=== PATIENT | male | born 1995 | race Two or more races ===

== ENCOUNTER 2025-04-22 13:19 | Emergency (ER) | payer MEDICAID, SELFPAY ==
[2025-04-22 13:49] VITALS: BP 122/78; PULSE 122; RESP 20; TEMP 39.4; O2SAT 96
[2025-04-22] MEDS: IBUPROFEN TAB 400 MG TABLET 800 MG PO (14:06)
[2025-04-22] MEDS: dexAMETHasone 4 MG TABLET 10 MG PO (14:06)
[2025-04-22] MEDS: LIDOCAINE HCL 1% 20 ML VIAL 2.1 ML INFL (14:07)
[2025-04-22] MEDS: cefTRIAXone SOD INJ 1,000 MG VIAL 1000 MG IM (14:07)
--- NOTE | 2025-04-22 17:18 | EDNOTE_ITS ---
Upper Respiratory Inf. RME/HPI General Chief Complaint: Headache Stated Complaint: MIGRAINE X FRI, FEVER, SORE THROAT, BONE ACHES Time Seen by Provider: 04/22/25 13:45 Arrival date/time: 04/22/25 13:19 29-year-old male with no significant medical problems presents to the Emergency Department today for complaints of sore throat and fever as well as headache and generalized bodyaches. Limitations: no limitations Related Data Previous Rx's ?Medication ?Instructions ?Recorded amoxicillin 875 mg-potassium 1 tab PO BID 7 days #14 t abs 04/22/25 clavulanate 125 mg tablet ibuprofen 800 mg tablet 800 mg PO TID PRN pain #30 t abs 04/22/25 Allergies Allergy/AdvReac Type Severity Reaction Status Date / Time NKA* Allergy Uncoded 04/22/25 13:22 Review of Systems Review of Systems Systems Reviewed: All systems reviewed, normal except as documented Constitutional Constitutional: Reports system reviewed and no additional complaints, except as documented, Denies fever(s) and Denies headache(s) Eyes Eyes: Reports system reviewed and no additional complaints, except as documented and Denies blurry vision ENT Ears, Nose, Mouth, and Throat: Reports system reviewed and no additional complaints, except as documented, Denies headache(s), Reports mouth pain, Reports nasal congestion, Reports nasal discharge, Reports sore throat and Reports throat swelling Cardiovascular Cardiovascular: Reports system reviewed and no additional complaints, except as documented, Denies chest pain and Denies dyspnea Respiratory Respiratory: Reports system reviewed and no additional complaints, except as documented, Denies chest congestion, Denies cough and Denies dyspnea Gastrointestinal Gastrointestinal: Reports system reviewed and no additional complaints, except as documented and Denies abdominal pain Integumentary/Breasts Skin/Breast: Reports system reviewed and no additional complaints, except as documented and Denies rash Neurologic Neurologic: Reports system reviewed and no additional complaints, except as documented, Reports as per HPI and Denies headache(s) Allergic/Immunologic Allergic/Immunologic: Reports throat swelling Past Medical History Past Medical History CARDIAC: Negative Congestive Heart Failure RESPIRATORY: Negative Chronic Obstructive Pulmonary Disease (COPD) GENITOURINARY: Negative Renal Disease ENDOCRINE: Negative Diabetes Mellitus Type 1 or Diabetes Mellitus Type 2 Social History SMOKING STATUS: Never smoker ED Exam General Limitations: Present no limitations General appearance: Present alert and in no apparent distress Head Head exam: Present atraumatic, normocephalic and normal inspection Eye Eye exam: Present normal appearance, PERRL and EOMI; Absent conjunctival injection ENT ENT exam: Present normal exam, normal oropharynx and mucous membranes moist Neck Neck exam: Present normal inspection, full ROM and trachea midline Chest Chest inspection: Present normal inspection and symmetric chest wall rise Respiratory Respiratory exam: Present normal lung sounds bilaterally; Absent respiratory distress, wheezes, stridor, accessory muscle use or prolonged expiratory phase Cardiovascular Cardiovascular exam: Present regular rate, normal rhythm and normal heart sounds Abdominal Exam Abdominal exam: Present soft and normal bowel sounds Extremities Exam Extremities exam: Present normal inspection and full ROM Back Exam Back exam: Present normal inspection and full ROM Neurological Exam Neurological exam: Present alert, oriented X3 and CN II-XII intact Psychiatric Psychiatric exam: Present normal affect and normal mood Skin Skin exam: Present warm, dry, intact and normal color Course Quality Measures none Orders Category Date Time Status Ibuprofen Tab [Motrin Tab] Med 04/22/25 13:52 Discontinued 800 mg PO X1 ONE Lidocaine 1% 20 ml [Xylocaine 1% 20 ML] Med 04/22/25 13:52 Discontinued 2.1 ml INFL X1 ONE cefTRIAXone [Rocephin] Med 04/22/25 13:52 Discontinued 1,000 mg IM X1 ONE dexAMETHasone TAB [Decadron Tab] Med 04/22/25 13:52 Discontinued 10 mg PO X1 ONE Vital Signs Vital signs: Vital Signs Temperature 103.0 F H 04/22/25 13:49 Pulse Rate 122 H 04/22/25 13:49 Respiratory Rate 20 04/22/25 13:49 Blood Pressure 122/78 04/22/25 13:49 Pulse Oximetry (%) 96 04/22/25 13:49 Oxygen Delivery Method Room Air 04/22/25 13:49 O2 saturation 96% r,a wnl Upper Respiratory Infection MDM Narrative MDM Narrative:: 29-year-old male with no significant medical problems presents to the Emergency Department today for complaints of sore throat and fever as well as headache and generalized bodyaches. On exam patient well-appearing patient does not appear ill or toxic in no acute distress despite having fever On exam patient appears to streptococcal pharyngitis patient given Rocephin, ibuprofen, dexamethasone Symptoms are highly consistent with streptococcal pharyngitis Patient discharged home in no distress to follow-up with primary care doctor in the next 24 to 48 hours and for any worsening symptoms to return to the ER immediately Patient data External records reviewed:: [facility] previous records Clinical information provided by:: patient Social determinants that could affect healthcare access:: none Patient has the following chronic illnesses:: Given How is presenting disease/condition affected by chronic disease/condition?: no chronic disease Evaluation data The following diagnostics were reviewed and interpreted by me:: other (specify) (N/A) Lab and/or radiology exams considered but not ordered:: Considered not ordered Interpretation Summary: N/A Medications / Prescriptions Medications or Prescriptions considered but not ordered:: Given Medication administrations:: Medication Administration History Discontinued Medications Ceftriaxone Sodium (Ceftriaxone Sod Inj 1,000 Mg Vial) 1,000 mg IM X1 ONE Stop: 04/22/25 13:53 Last Admin: 04/22/25 14:07 Dose: 1,000 mg Documented By: MAGGY Dexamethasone (Dexamethasone 4 Mg Tablet) 10 mg PO X1 ONE Stop: 04/22/25 13:53 Last Admin: 04/22/25 14:06 Dose: 10 mg Documented By: MAGGY Ibuprofen (Ibuprofen Tab 400 Mg Tablet) 800 mg PO X1 ONE Stop: 04/22/25 13:53 Last Admin: 04/22/25 14:06 Dose: 800 mg Documented By: MAGGY Lidocaine HCl (Lidocaine Hcl 1% 20 Ml Vial) 2.1 ml INFL X1 ONE Stop: 04/22/25 13:53 Last Admin: 04/22/25 14:07 Dose: 2.1 ml Documented By: MAGGY Given Consultations Consultation(s) initiated? (list below): No Diagnosis Upper Respiratory Differential Diagnosis: upper respiratory infection, otitis media, sinusitis, bronchitis and pharyngitis Most likely diagnosis given after review of the tests above:: Pharyngitis Admission Indicated Admission indicated?: not indicated Admission Request Was there a request for admission?: No Disposition Plan Disposition Plan: Discharge Discharge Attestation Discharge Attestation: The patient and all family members were given an opportunity to ask questions and understood the discharge instructions. Discharge instructions specifically effects, indications for sooner follow up or return to the emergency department, and the expected course of current diagnosis. Patient condition: Stable Discharge Plan Plan Patient Disposition: HOME (Self Care) Discharge Disposition comment: Stable Prescriptions/Referrals Prescriptions/Med Rec: New amoxicillin-pot clavulanate 875-125 mg tablet 1 tab PO BID 7 Days Qty: 14 0RF ibuprofen 800 mg tablet 800 mg PO TID PRN (Reason: pain) Qty: 30 0RF Problem List Clinical Impression: Pharyngitis Patient/Caregiver Discharge Instructions Education Materials: Self-Care for Sore Throats Additional Instructions: Please follow up with your primary care doctor in the next 24-48hrs for any worsening symptoms return here immediately Print Language: Japanese Stand Alone Forms: Kathi Award Info., Work/School Release, Patient Portal Info Letter PA/SAP BASIS ARCHITECT Supervising Physician PA/SAP BASIS ARCHITECT Supervising Physician: Dr cruz
== END 2025-04-22 15:00 | disposition home or self-care (01) ==
LOC: SERX 14:46
PROVIDERS: Emergency Provider Family Medicine; PCP Family Medicine
DX: J02.9 Acute pharyngitis, unspecified (principal)
CPT/HCPCS: 96372; 99283; J0696; J3490; J8540; A9270

== ENCOUNTER 2025-07-31 05:40 | Day surgery (SDC) | payer MEDICAID, SELFPAY ==
[2025-07-30 07:30] VITALS: BMI 40.6
[2025-07-30 08:36] LABS: Basophils # (Auto) 0.0 Thou/mm3 (0.0-0.2); Basophils % (Auto) 1 % (0-2.5); Eosinophils # (Auto) 0.2 Thou/mm3 (0.0-0.5); Eosinophils % (Auto) 4 % (0-10); Hematocrit 48.9 % (41.0-53.0); Hemoglobin 16.3 g/dL (13.5-16.0); Immature Granulocytes Auto 0.03 Thou/mm3 (0.00-0.00); Lymphocytes # (Auto) 2.4 Thou/mm3 (1.0-4.8); Lymphocytes % (Auto) 41 % (10-50); Mean Corpuscular HGB Conc 33.3 g/dl (31.0-37.0); Mean Corpuscular Hemoglobin 31.7 pg (25.0-35.0); Mean Corpuscular Volume 95 fL (80-100); Monocytes # (Auto) 0.6 Thou/mm3 (0.0-0.8); Monocytes % (Auto) 10 % (0-12); Neutrophils # (Auto) 2.7 Thou/mm3 (1.8-7.7); Neutrophils % (Auto) 45 % (37-80); Nucleated Red Blood Cell # 0.00 Thou/mm3 (0.00-0.00); Nucleated Red Blood Cell % 0 /100 WBC (0); Platelet Count 249 Thou/mm3 (140-440); RDW Standard Deviation 47.7 fL (35.1-43.9); Red Blood Count 5.15 Miln/mm3 (4.50-5.90); White Blood Count 6.0 Thou/mm3 (3.8-10.6)
[2025-07-30 08:47] LABS: Alanine Aminotransferase 29 U/L (10-49); Albumin, Serum 4.3 gm/dL (3.5-5.0); Albumin/Globulin Ratio 1.5 (1.2-2.2); Alkaline Phosphatase 57 U/L (46-116); Anion Gap 9 (7-16); Aspartate Amino Transferase 26 U/L (0-34); BUN/Creatinine Ratio 18 Ratio (12-20); Bilirubin,Total 0.5 mg/dL (0.3-1.2); Blood Urea Nitrogen 14 mg/dL (9-23); Calcium 9.7 mg/dL (8.3-10.6); Calcium (Corrected) 9.7 mg/dL (8.5-10.1); Carbon Dioxide 28.9 mMol/L (20.0-31.0); Chloride 102 mMol/L (98-107); Creatinine (Component) 0.8 mg/dL (0.6-1.3); Estimated Creatinine Clearance 173.9 mL/min (>60); Globulin 2.8 gm/dL (2.3-3.5); Glucose 95 mg/dL (74-106); Osmolality,Calculated 279 (275-295); Potassium 4.0 mMol/L (3.4-5.1); Sodium 140 mMol/L (136-145); Total Protein 7.1 gm/dL (5.7-8.2); eGFR > 60 See Note
[2025-07-31 06:30] VITALS: BP 162/88; PULSE 97; RESP 20; TEMP 36.9; O2SAT 96; BMI 40.0
[2025-07-31] MEDS: RINGERS LACTATED 1000 ML 1,000 ML 20 ML IV (06:40)
--- NOTE | 2025-07-31 07:15 | CHAP ---
Visited briefly with patient giving comfort and prayer.
[2025-07-31 08:46] VITALS: BP 135/95; PULSE 96; RESP 19; TEMP 36.6; O2SAT 97
--- NOTE | 2025-07-31 08:46 | SUR.PHASEII ---
0825 patient arrived to recovery resting comfortably in [facility], awake and talking with staff, breathing unlabored, vital signs stable, denies pain, dressing intact to left foot; sutures, adaptic, fluffs, evelyn wraps, no bleeding noted, report received from Nolan L[facility] and Dr. Cooper/Gilles SRNA
[2025-07-31 08:51] VITALS: BP 134/91; PULSE 97; RESP 20; O2SAT 96
--- NOTE | 2025-07-31 08:52 | ESOP_ITS ---
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 IV sedation was obtained, and a local block was given of 30 cc 0.5% Marcaine following skin prep. A tourniquet was applied to the ankle and left lower leg was scrubbed prepped and draped in the normal aseptic fashion. Attention was then directed to the left foot which was exsanguinated of obligation Esmarch bandage. A curvilinear incision was made overlying the mass, and skin and subcu were incised exposing the mass. The mass was immediately noted, fibrous scar tissue largely avascular, with some adipose tissue clean to it. Otherwise the mass is well-defined margins was teased away from the surrounding soft tissues without damage to structures, and was resected from the fascia with a margin of more than 0.5 cm. Mass was sent to pathology, areas copiously flushed and rongeured ensuring that no more residual fascia was noted anywhere near margins, area was flushed again, and closed with 3-0 Vicryl and 3- 0 nylon. It was dressed with Adaptic fluffs Kerlix and Clyde. Tourniquet was dropped and patient sent to recovery with vital signs stable and vascular status intact to left foot. Anesthesia MAC and local Drains None Implants None Pathology / specimen Other Pathology comment: Left plantar fibroma mass sent Estimated Blood Loss 5 Condition Stable Disposition same day Surgeon Junior Mcadams DPM Surgical Staff Operation Date: 07/31/25 07:30 Case Staff Anesthesiologist: Vladimir Cooper
[2025-07-31 08:56] VITALS: BP 139/94; PULSE 89; RESP 17; O2SAT 97
[2025-07-31 09:01] VITALS: BP 133/83; PULSE 92; RESP 13; O2SAT 95
[2025-07-31 09:16] VITALS: BP 145/91; PULSE 87; RESP 19; TEMP 36.7; O2SAT 97
--- NOTE | 2025-07-31 09:34 | SUR.PHASEII ---
0934 Patient meets discharge criteria from recovery, awake and alert, breathing unlabored, vital signs stable, denies pain, dressing intact; no bleeding noted, patient ate two jello's and drinking apple juice; tolerating well, denies nausea, able to dress himself into his clothing, discharge instructions given to patient and patients brother, brother signed discharge instructions. Patient given all his belongings prior to discharge, transported via wheelchair and left in a private vehicle.
== END 2025-07-31 09:34 | disposition home or self-care (01) ==
PROVIDERS: PCP Family Medicine; Referring Provider Podiatrist; Visit Provider Podiatrist
PROC: (CPT 28039; principal; 2025-07-31 07:30)
DX: M72.2 Plantar fascial fibromatosis (principal)
CPT/HCPCS: 28039; 36415; 80053; 85025; A4217; A4649; J2250; J2704; J3010; J3490; J7120

== ENCOUNTER 2025-10-28 05:03 | Emergency (ER) | payer MEDICAID, SELFPAY ==
[2025-10-28 05:03] VITALS: BMI 41.0
[2025-10-28 05:11] VITALS: BP 141/92; PULSE 88; RESP 18; TEMP 36.6; O2SAT 95
--- NOTE | 2025-10-28 05:21 | XR_ITS ---
Examination: Abdomen sonogram, Limited Date and time of exam: October 28, 2025, 0530 hours INDICATIONS: Onset abdominal pain today Technique: Real-time garcia scale transabdominal sonographic images of the upper abdomen obtained. Findings: Negative for gallstones Gallbladder wall 0.36 cm no edema Common bile duct 0.3 cm Pancreas obscured by bowel gas Liver 15.0 cm fatty infiltration Normal hepatopetal portal venous flow Patent IVC IMPRESSION: Borderline thickened gallbladder wall 0.36 cm, clinical correlation advised, consider HIDA scan or MRCP follow-up as clinically warranted
--- NOTE | 2025-10-28 05:21 | PD.EDRME ---
Rapid Medical Screening Exam RME Arrival date/time: 10/28/25 05:03 This is a case of 30-year-old male with no medical history came in in the emergency room due to both upper abdominal and epigastric pain for 1 day associated with nausea vomitINGH Chief Complaint: Abdominal Pain Time Seen by Provider: 10/28/25 05:20 Vital signs: Vital Signs Temperature 97.9 F 10/28/25 05:11 Pulse Rate 88 10/28/25 05:11 Respiratory Rate 18 10/28/25 05:11 Blood Pressure 141/92 H 10/28/25 05:11 Pulse Oximetry (%) 95 10/28/25 05:11 Oxygen Delivery Method Room Air 10/28/25 05:11 Exam: Tenderness on both upper abdomen no guarding no rebound no rigidity negative psoas negative straight or negative Rovsing's negative McBurney's negative Miller sign negative CVA tenderness Clinical Impression: Abdominal pain
[2025-10-28 05:43] LABS: Collection Type, Urine Clean Catch; Squamous Epithelial Cell,Urine 0 /hpf (0-5)
[2025-10-28 06:03] LABS: Basophils # (Auto) 0.0 Thou/mm3 (0.0-0.2); Basophils % (Auto) 0 % (0-2.5); Eosinophils # (Auto) 0.2 Thou/mm3 (0.0-0.5); Eosinophils % (Auto) 3 % (0-10); Hematocrit 47.9 % (41.0-53.0); Hemoglobin 16.0 g/dL (13.5-16.0); Immature Granulocytes Auto 0.01 Thou/mm3 (0.00-0.00); Lymphocytes # (Auto) 2.1 Thou/mm3 (1.0-4.8); Lymphocytes % (Auto) 32 % (10-50); Mean Corpuscular HGB Conc 33.4 g/dl (31.0-37.0); Mean Corpuscular Hemoglobin 30.5 pg (25.0-35.0); Mean Corpuscular Volume 91 fL (80-100); Monocytes # (Auto) 0.7 Thou/mm3 (0.0-0.8); Monocytes % (Auto) 10 % (0-12); Neutrophils # (Auto) 3.6 Thou/mm3 (1.8-7.7); Neutrophils % (Auto) 55 % (37-80); Nucleated Red Blood Cell # 0.00 Thou/mm3 (0.00-0.00); Nucleated Red Blood Cell % 0 /100 WBC (0); Platelet Count 248 Thou/mm3 (140-440); RDW Standard Deviation 46.2 fL (35.1-43.9); Red Blood Count 5.25 Miln/mm3 (4.50-5.90); White Blood Count 6.6 Thou/mm3 (3.8-10.6)
[2025-10-28 06:07] LABS: Bilirubin,Urine Negative (Negative); Blood,Urine Trace (Negative); Clarity,Urine Clear (Clear/Hazy); Color,Urine Yellow (Lt Yel-Yel); Glucose, Urine Negative (Negative); Ketones,Urine Negative (Negative); Leukocyte Esterase,Urine Negative (Negative); Nitrite,Urine Negative (Negative); PH,Urine 6.0 (5.0-7.0); Protein,Urine Negative (Neg - Trace); RBC,Urine 4 /hpf (0-3); Specific Gravity,Urine 1.022 (1.001-1.035); Urobilinogen,Urine Negative mg/dL (0.0-1.0); WBC,Urine 1 /hpf (0-5)
[2025-10-28 06:21] LABS: Alanine Aminotransferase 22 U/L (10-49); Albumin, Serum 5.0 gm/dL (3.5-5.0); Albumin/Globulin Ratio 1.6 (1.2-2.2); Alkaline Phosphatase 64 U/L (46-116); Anion Gap 9 (7-16); Aspartate Amino Transferase 26 U/L (0-34); BUN/Creatinine Ratio 12 Ratio (12-20); Bilirubin,Total 0.7 mg/dL (0.3-1.2); Blood Urea Nitrogen 11 mg/dL (9-23); Calcium 9.7 mg/dL (8.3-10.6); Calcium (Corrected) 9.7 mg/dL (8.5-10.1); Carbon Dioxide 30.9 mMol/L (20.0-31.0); Chloride 100 mMol/L (98-107); Creatinine (Component) 0.9 mg/dL (0.6-1.3); Estimated Creatinine Clearance 152.8 mL/min (>60); Globulin 3.2 gm/dL (2.3-3.5); Glucose 121 mg/dL (74-106); Lipase 31 U/L (12-53); Osmolality,Calculated 279 (275-295); Potassium 4.1 mMol/L (3.4-5.1); Sodium 140 mMol/L (136-145); Total Protein 8.2 gm/dL (5.7-8.2); eGFR > 60 See Note
--- NOTE | 2025-10-28 07:14 | EDNOTE_ITS ---
<Statement entered by Hiwot Dodd MD - 10/28/25 17:17> As co-signing physician, I was present and available for consult prn. I concur with the plan and care as documented by the midlevel provider. ED Abdominal Pain RME/HPI General Chief Complaint: Abdominal Pain Stated complaint: R SIDED ABD PAIN Time seen by provider: 10/28/25 05:20 Arrival date/time: 10/28/25 05:03 30-year-old male with no known medical history presents to the emergency room with a chief complaint of epigastric abdominal pain that radiates to the right upper quadrant x 2 days Source: patient Mode of arrival: ambulatory Limitations: no limitations RME / HPI RME / HPI narrative: 10/28/25 05:03 This is a case of 30-year-old male with no medical history came in in the emergency room due to both upper abdominal and epigastric pain for 1 day associated with nausea vomitINGH Exam: Tenderness on both upper abdomen no guarding no rebound no rigidity negative psoas negative straight or negative Rovsing's negative McBurney's negative Miller sign negative CVA tenderness Impression: Abdominal pain Related Data Previous Rx's ?Medication ?Instructions ?Recorded omeprazole 40 mg capsule,delayed 40 mg PO QDAY #30 cap s 10/28/25 release Allergies Allergy/AdvReac Type Severity Reaction Status Date / Time No Known Allergies Allergy Verified 10/28/25 05:07 Review of Systems Review of Systems Systems Reviewed: All systems reviewed, normal except as documented Constitutional Constitutional: Reports system reviewed and no additional complaints, except as documented, Denies fatigue, Denies fever(s), Denies headache(s) and Denies w eakness Eyes Eyes: Reports system reviewed and no additional complaints, except as documented, Denies blurry vision and Denies change in vision ENT Ears, Nose, Mouth, and Throat: Reports system reviewed and no additional complaints, except as documented, Denies otalgia, Denies headache(s), Denies nasal congestion, Denies throat swelling and Denies vertigo Cardiovascular Cardiovascular: Reports system reviewed and no additional complaints, except as documented, Denies chest pain, Denies dyspnea and Denies dyspnea on exertion Respiratory Respiratory: Reports system reviewed and no additional complaints, except as documented, Denies chest congestion, Denies cough, Denies dyspnea, Denies dyspnea on exertion and Denies wheezing Gastrointestinal Gastrointestinal: Reports system reviewed and no additional complaints, except as documented, Reports abdominal pain, Reports cramping, Reports dyspepsia, Reports nausea and Reports vomiting Genitourinary Genitourinary: Reports system reviewed and no additional complaints, except as documented, Denies dysuria and Denies hematuria Musculoskeletal Musculoskeletal: Reports system reviewed and no additional complaints, except as documented and Denies back pain Integumentary/Breasts Skin/Breast: Reports system reviewed and no additional complaints, except as documented and Denies wounds Neurologic Neurologic: Reports system reviewed and no additional complaints, except as documented, Denies confusion, Denies headache(s), Denies lack of coordination, Denies vertigo and Denies weakness Psychiatric Psychiatric: Reports system reviewed and no additional complaints, except as documented, Denies anxiety, Denies confusion, Denies depression, Denies paranoia, Denies suicidal ideation and Denies tactile hallucinations Endocrine Endocrine: Reports system reviewed and no additional complaints, except as documented and Denies fatigue Hematologic/Lymphatic Hematologic/Lymphatic: Reports system reviewed and no additional complaints, except as documented and Denies lymphadenopathy Allergic/Immunologic Allergic/Immunologic: Reports system reviewed and no additional complaints, except as documented, Denies throat swelling, Denies urticaria and Denies wheezing Past Medical History Past Medical History NEUROLOGIC: Negative Neurological Disorders or Seizures CARDIAC: Negative Cardiac Disorders or Congestive Heart Failure RESPIRATORY: Negative Chronic Obstructive Pulmonary Disease (COPD) GASTROINTESTINAL: Positive Gastrointestinal Disorders and Obesity GENITOURINARY: Negative Genitourinary Disorders or Renal Disease MUSCULOSKELETAL: Negative Musculoskeletal Disorders ENDOCRINE: Negative Endocrine Disorders, Diabetes Mellitus Type 1 or Diabetes Mellitus Type 2 HEMATOLOGIC: Negative Blood Disorders OTHER HISTORY: Negative Autoimmune Disease, Blood Transfusions, Blood Transfusion Reaction, Anesthesia Reactions, MRSA, Clostridium Difficile or Cancer Family History FAMILY HISTORY: Negative Family Psychiatric Problems, Family Respiratory Disorders, Family Cardiac Disorders, Family Gastrointestinal Problems, Family Cancer, Family Surgery or Family Anesthesia Reaction Social History SMOKING STATUS: Never smoker ED Exam General Limitations: Present no limitations General appearance: Present alert and in no apparent distress Head Head exam: Present atraumatic Eye Eye exam: Present normal appearance, PERRL and EOMI ENT ENT exam: Present normal exam, normal oropharynx and mucous membranes moist Neck Neck exam: Present normal inspection, full ROM and trachea midline Chest Chest inspection: Present normal inspection and symmetric chest wall rise Respiratory Respiratory exam: Present normal lung sounds bilaterally Cardiovascular Cardiovascular exam: Present regular rate, normal rhythm and normal heart sounds Abdominal Exam Abdominal exam: Present soft, tenderness and normal bowel sounds; Absent Miller's sign, Rovsing's sign or tenderness at McBurney's Point Abdominal tenderness: Present RUQ, epigastrium and mild Extremities Exam Extremities exam: Present normal inspection and full ROM Back Exam Back exam: Present normal inspection and full ROM Neurological Exam Neurological exam: Present alert, oriented X3 and CN II-XII intact Psychiatric Psychiatric exam: Present normal affect and normal mood Skin Skin exam: Present warm, dry, intact and normal color Course Quality Measures none Orders Category Date Time Status US gall bladder Stat Exams 10/28/25 05:21 Completed CBC Stat Lab 10/28/25 05:48 Completed Comprehensive Metabolic Panel Stat Lab 10/28/25 05:48 Completed Lipase Stat Lab 10/28/25 05:48 Completed Urinalysis Stat Lab 10/28/25 05:30 Completed Vital Signs Vital signs: Vital Signs Temperature 97.9 F 10/28/25 05:11 Pulse Rate 88 10/28/25 05:11 Respiratory Rate 18 10/28/25 05:11 Blood Pressure 141/92 H 10/28/25 05:11 Pulse Oximetry (%) 95 10/28/25 05:11 Oxygen Delivery Method Room Air 10/28/25 05:11 Abdominal Pain MDM MDM Narrative MDM Narrative:: 30-year-old male with no known medical history presents to the emergency room with a chief complaint of epigastric abdominal pain that radiates to the right upper quadrant x 2 days Patient is hemodynamically stable and in no apparent distress. Patient is afebrile not tachycardic not tachypneic Physical examination shows right upper quadrant abdominal tenderness. There is a negative Miller sign Ultrasound of the gallbladder was negative for any cholelithiasis or cholecystitis. The patient does have a fatty liver which to was educated on. There was also a thickened gallbladder wall. Bilirubin and liver enzymes are within normal limits. Patient was discharged and educated to follow-up with primary care provider in the next 24 to 48 hours and return to the emergency room for any evidence of worsening signs or symptoms Patient data External records reviewed:: [facility] previous records Clinical information provided by:: patient Social determinants that could affect healthcare access:: none Patient has the following chronic illnesses:: No chronic How is presenting disease/condition affected by chronic disease/condition?: no chronic disease Evaluation data The following diagnostics were reviewed and interpreted by me:: lab results and radiology exam(s) Lab and/or radiology exams considered but not ordered:: Labs and radiology exams considered and ordered Interpretation Summary: Ultrasound gallbladder-Findings: Negative for gallstones Gallbladder wall 0.36 cm no edema Common bile duct 0.3 cm Pancreas obscured by bowel gas Liver 15.0 cm fatty infiltration Normal hepatopetal portal venous flow Patent IVC IMPRESSION: Borderline thickened gallbladder wall 0.36 cm, clinical correlation advised, consider HIDA scan or MRCP follow-up as clinically warranted Medications / Prescriptions Medications or Prescriptions considered but not ordered:: No medication given Medication administrations:: No medication given Consultations Consultation(s) initiated? (list below): No Diagnosis Differential diagnosis abdominal pain: abdominal pain, gastroenteritis, pancreatitis and other (Gastritis/cholelithiasis/cholecystitis) Most likely diagnosis given after review of the tests above:: Gastritis Admission Indicated Admission indicated?: not indicated Admission Request Was there a request for admission?: No Disposition Plan Disposition Plan: Discharge Discharge Attestation Discharge Attestation: The patient and all family members were given an opportunity to ask questions and understood the discharge instructions. Discharge instructions specifically effects, indications for sooner follow up or return to the emergency department, and the expected course of current diagnosis. Patient condition: Stable Discharge Plan Plan Patient Disposition: HOME (Self Care) Discharge Disposition comment: Stable Prescriptions/Referrals Prescriptions/Med Rec: New omeprazole 40 mg capsule,delayed release(DR/EC) 40 mg PO QDAY Qty: 30 0RF Referrals: No Primary/Family,Physician [Referring Provider] - In 1 week Problem List Clinical Impression: Gastritis, Fatty infiltration of liver Patient/Caregiver Discharge Instructions Education Materials: Nonalcoholic Fatty Liver ..., ED Gastritis (Adult) Additional Instructions: Please follow-up with your primary care provider in the next 24 to 48 hours Your ultrasound of your gallbladder was negative for any stones. Your blood work and urinalysis were within normal limits. Medication was sent to your pharmacy to help you with gastritis For any evidence of worsening signs or symptoms return to the emergency room immediately Print Language: Turkmen Stand Alone Forms: Kathi Award Info., Work/School Release, Patient Portal Info Letter PA/PROBATION WORKER Supervising Physician PA/PROBATION WORKER Supervising Physician: Dr. Denise
[2025-10-28 08:09] VITALS: BP 157/80; PULSE 85; RESP 18; O2SAT 96
== END 2025-10-28 08:14 | disposition home or self-care (01) ==
PROVIDERS: Nurse Practitioner Family; Emergency Provider Emergency Medicine; PCP Family Medicine
DX: K29.70 Gastritis, unspecified, without bleeding (principal); K76.0 Fatty (change of) liver, not elsewhere classified
CPT/HCPCS: 36415; 76705; 80053; 81001; 83690; 85025; 99283

== ENCOUNTER 2025-11-10 10:13 | Emergency (ER) | payer MEDICAID, SELFPAY ==
[2025-11-10 10:14] VITALS: BMI 41.0
[2025-11-10 10:32] VITALS: BP 136/94; PULSE 86; RESP 18; TEMP 36.5; O2SAT 97
--- NOTE | 2025-11-10 11:28 | EDNOTE_ITS ---
<Statement entered by Hiwot Dodd MD - 11/12/25 17:48> As co-signing physician, I was present and available for consult prn. I concur with the plan and care as documented by the midlevel provider. ED Dental RME/HPI General Chief complaint: Dental/Oral/Throat Stated complaint: L TEETH PAIN X3 DAYS; HEADACHE SINCE LAST NIGHT Time Seen by Provider: 11/10/25 10:59 Arrival date/time: 11/10/25 10:13 RME / HPI RME / HPI Narrative: 30-year-old healthy male presents to the ER complaining of left lower and left upper jaw pain which radiates to his head worse in the past 3 days which is worse when eating food and sensitive to cold. Denies any dysphagia, shortness of breath, vision changes, vomiting. Related Data Previous Rx's ?Medication ?Instructions ?Recorded omeprazole 40 mg capsule,delayed 40 mg PO QDAY #30 cap s 10/28/25 release amoxicillin 875 mg-potassium 1 tab PO BID #20 tabs clavulanate 125 mg tablet chlorhexidine gluconate 0.12 % 15 ml buccal QDAY #118 mL 11/10/25 mouthwash naproxen 500 mg tablet 500 mg PO BID PRN pain #14 t abs 11/10/25 Allergies Allergy/AdvReac Type Severity Reaction Status Date / Time No Known Allergies Allergy Verified 11/10/25 10:17 ED Exam Narrative Physical exam: Constitutional: Patient alert and oriented. Well appearing. No acute distress. Not toxic appearing. Head: Normocephalic, atraumatic. Eyes: Periorbital regions bilaterally normal to inspection. Conjunctiva clear bilaterally. Sclera anicteric bilaterally. Pupils equal, round, reactive to light bilaterally. Extraocular movements intact bilaterally. Ears: External ears normal to inspection bilaterally. No mastoid tenderness bilaterally. EAC without edema or exudate bilaterally. TMs without erythema or bulging. Mouth/Throat: Mucous membranes moist. No stridor or muffled voice. Uvula midline. Rise and fall of soft palate normal. No tonsillar exudate. Positive edema of tonsils bilaterally. No peritonsillar fullness. No trismus. Handling secretions without difficulty. Airway widely patent. Positive anterior cervical lymphadenopathy bilaterally. Positive tenderness to palpation to premolar region of left lower and left upper jaw. No tenderness or induration on the floor of the mouth. Neck: Supple. Trachea midline. No JVD. No nuchal rigidity. No midline tenderness or step-offs. Normal range of motion. Respiratory: Normal effort. No accessory muscle use or respiratory distress. Lungs clear to auscultation bilaterally without rhonchi, wheezes, or crackles. Cardiovascular: RRR. Normal S1/S2. No murmurs or rubs. Radial pulses intact bilaterally. Abdomen: Soft. Non-distended. Non-tender throughout. No pulsatile mass. No guarding or rebound. Negative Miller?s sign. Negative McBurney?s point tenderness. Negative Rovsing?s. Back: No midline tenderness or step-offs. No CVA tenderness to palpation bilaterally. Upper Extremities: No gross deformities. Lower Extremities: No gross deformities. No edema or calf tenderness. Neuro: Speech normal. No gross motor or sensory deficits to upper or lower extremities bilaterally. GCS 15. CN II?XII grossly intact. Skin: Warm, dry, normal color. Psych: Normal affect. Cooperative. Normal insight. Course Quality Measures none Orders Category Date Time Status Ketorolac Inj [Toradol Inj] Med 11/10/25 11:31 Discontinued 30 mg IM X1 ONE Vital Signs Vital signs: Vital Signs Temperature 97.7 F 11/10/25 10:32 Pulse Rate 86 11/10/25 10:32 Respiratory Rate 18 11/10/25 10:32 Blood Pressure 136/94 H 11/10/25 10:32 Pulse Oximetry (%) 97 11/10/25 10:32 Oxygen Delivery Method Room Air 11/10/25 10:32 Dental / Oral MDM Narrative MDM Narrative:: MDM Suspect: pulpitis vs periodontitis No induration on floor of mouth to suggest Ludwigs Angina No mass effect or extension into orbits, no pain with EOM No mass effect in OP cavity or trismus to suggest para pharyngeal abscess 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 Patient data External records reviewed:: [facility] previous records Clinical information provided by:: patient Social determinants that could affect healthcare access:: none Patient has the following chronic illnesses:: As noted How is presenting disease/condition affected by chronic disease/condition?: uneffected by Evaluation data The following diagnostics were reviewed and interpreted by me:: other (specify) Lab and/or radiology exams considered but not ordered:: Additional Labs and radiology considered, but not ordered as they were not clinically indicated at this time. Interpretation Summary: As noted Medications / Prescriptions Medications or Prescriptions considered but not ordered:: I ordered medications based on the patient?s clinical needs and assessment, as documented in the chart. For medications not prescribed, they were not indicated for the patient's current condition, and I determined they were unnecessary at this time to avoid potential risks or complications. Medication administrations:: Medication Administration History Discontinued Medications Ketorolac Tromethamine (Ketorolac Inj 30 Mg/Ml Vial) 30 mg IM X1 ONE Stop: 11/10/25 11:32 Last Admin: 11/10/25 11:43 Dose: 30 mg Documented By: As noted Consultations Consultation(s) initiated? (list below): No Diagnosis Most likely diagnosis given after review of the tests above:: As noted Admission Indicated Admission indicated?: not indicated Admission Request Was there a request for admission?: No Disposition Plan Disposition Plan: Discharge Discharge Attestation Discharge Attestation: The patient and all family members were given an opportunity to ask questions and understood the discharge instructions. Discharge instructions specifically effects, indications for sooner follow up or return to the emergency department, and the expected course of current diagnosis. Patient condition: Stable Discharge Plan Plan Patient Disposition: HOME (Self Care) Patient condition on transfer: Stable Prescriptions/Referrals Prescriptions/Med Rec: New amoxicillin-pot clavulanate 875-125 mg tablet 1 tab PO BID Qty: 20 0RF naproxen 500 mg tablet 500 mg PO BID PRN (Reason: pain) Qty: 14 0RF Rx Instructions: take wtih food and 8 oz of water chlorhexidine gluconate 0.12 % mouthwash 15 ml buccal QDAY Qty: 118 0RF No Action omeprazole 40 mg capsule,delayed release(DR/EC) 40 mg PO QDAY Qty: 30 0RF Referrals: Homar Kay MD [Primary Care Provider, Family Practice] - In 1 week Problem List Clinical Impression: Pain, dental Patient/Caregiver Discharge Instructions Education Materials: ED Dental Pain Additional Instructions: Follow up with your primary medical doctor and a dentist within 48 hours. Return to the Emergency Room immediately for any new, worsening, continuing symptoms or any concerns at all. Return to the Emergency Room within 48 hours if you are unable to follow up with your primary medical doctor and a dentist within 48 hours. Print Language: Mongolian Stand Alone Forms: Kathi Award Info., Work/School Release, Patient Portal Info Letter PA/EMAIL ENGINEER Supervising Physician PA/EMAIL ENGINEER Supervising Physician: Dr. DODD
[2025-11-10] MEDS: KETOROLAC INJ 30 MG/ML VIAL IM (11:43)
== END 2025-11-10 12:51 | disposition home or self-care (01) ==
PROVIDERS: Emergency Provider Emergency Medicine; PCP Family Medicine
DX: K08.89 Other specified disorders of teeth and supporting structures (principal)
CPT/HCPCS: 96372; 99282; J1885

== ENCOUNTER 2025-11-18 21:11 | Emergency (ER) | payer MEDICAID, SELFPAY ==
[2025-11-18 21:14] VITALS: BMI 40.3
--- NOTE | 2025-11-18 21:30 | XR_ITS ---
Examination: Foot, left, 3 views Technique: AP, oblique, lateral views foot, 3 views Date and time of exam: November 18, 2025, 1033 hours INDICATIONS: Foot pain beginning 10 days ago FINDINGS: No acute fracture Soft tissue defect plantar foot at the level of distal metatarsals No leticia cortical bone destruction No foreign body IMPRESSION: No leticia cortical bone destruction Consider MRI foot without contrast follow-up to best assess for soft tissue abscess, early osteomyelitis
[2025-11-18 21:32] VITALS: BP 147/86; PULSE 96; RESP 18; TEMP 36.6; O2SAT 98
[2025-11-18 22:22] LABS: Basophils # (Auto) 0.0 Thou/mm3 (0.0-0.2); Basophils % (Auto) 0 % (0-2.5); Eosinophils # (Auto) 0.3 Thou/mm3 (0.0-0.5); Eosinophils % (Auto) 4 % (0-10); Hematocrit 43.5 % (41.0-53.0); Hemoglobin 14.6 g/dL (13.5-16.0); Immature Granulocytes Auto 0.01 Thou/mm3 (0.00-0.00); Lymphocytes # (Auto) 2.3 Thou/mm3 (1.0-4.8); Lymphocytes % (Auto) 34 % (10-50); Mean Corpuscular HGB Conc 33.6 g/dl (31.0-37.0); Mean Corpuscular Hemoglobin 30.7 pg (25.0-35.0); Mean Corpuscular Volume 91 fL (80-100); Monocytes # (Auto) 0.6 Thou/mm3 (0.0-0.8); Monocytes % (Auto) 9 % (0-12); Neutrophils # (Auto) 3.6 Thou/mm3 (1.8-7.7); Neutrophils % (Auto) 53 % (37-80); Nucleated Red Blood Cell # 0.00 Thou/mm3 (0.00-0.00); Nucleated Red Blood Cell % 0 /100 WBC (0); Platelet Count 284 Thou/mm3 (140-440); RDW Standard Deviation 45.4 fL (35.1-43.9); Red Blood Count 4.76 Miln/mm3 (4.50-5.90); White Blood Count 6.8 Thou/mm3 (3.8-10.6)
[2025-11-18 22:43] LABS: Alanine Aminotransferase 20 U/L (10-49); Albumin, Serum 4.3 gm/dL (3.5-5.0); Albumin/Globulin Ratio 1.3 (1.2-2.2); Alkaline Phosphatase 76 U/L (46-116); Anion Gap 9 (7-16); Aspartate Amino Transferase 26 U/L (0-34); BUN/Creatinine Ratio 13 Ratio (12-20); Bilirubin,Total 0.3 mg/dL (0.3-1.2); Blood Urea Nitrogen 13 mg/dL (9-23); Calcium 9.6 mg/dL (8.3-10.6); Calcium (Corrected) 9.6 mg/dL (8.5-10.1); Carbon Dioxide 30.3 mMol/L (20.0-31.0); Chloride 101 mMol/L (98-107); Creatinine (Component) 1.0 mg/dL (0.6-1.3); Estimated Creatinine Clearance 136.2 mL/min (>60); Globulin 3.4 gm/dL (2.3-3.5); Glucose 108 mg/dL (74-106); Osmolality,Calculated 280 (275-295); Potassium 4.1 mMol/L (3.4-5.1); Sodium 140 mMol/L (136-145); Total Protein 7.7 gm/dL (5.7-8.2); eGFR > 60 See Note
[2025-11-18] MEDS: CLINDAMYCIN PHOS INJ 150 MG/ML VIAL 6 ML 600 MG IM (23:23)
--- NOTE | 2025-11-19 04:58 | PD.EDSKIN ---
ED Skin Abcess FB-RME/HPI General Chief complaint: Ankle/Foot Injury Stated complaint: LEFT FOOT PAIN AND NUMBNESS SINCE 07/31/25 Time Seen by Provider: 11/18/25 21:14 Arrival date/time: 11/18/25 21:11 This is a case of 30-year-old male with no medical history came into the emergency room due to left foot pain with redness on the plantar aspect of the left foot patient stated that last July 2025 he had a surgery on his left foot due to a cyst since then he has on and off pain and redness to the left foot and treated with infection patient started to have left foot pain 2 days prior to arrival in the emergency room with redness on the plantar aspect of the left foot no other symptoms noted no fever no chills Limitations: no limitations Related Data Previous Rx's ?Medication ?Instructions ?Recorded omeprazole 40 mg capsule,delayed 40 mg PO QDAY #30 caps 10/28/25 release amoxicillin 875 mg-potassium 1 tab PO BID #20 tabs 11/10/25 clavulanate 125 mg tablet chlorhexidine gluconate 0.12 % 15 ml buccal QDAY #118 mL 11/10/25 mouthwash naproxen 500 mg tablet 500 mg PO BID PRN pain #14 tabs 11/10/25 clindamycin HCl 300 mg capsule 300 mg PO Q6H 10 days #40 caps 11/18/25 (Cleocin HCl) Allergies Allergy/AdvReac Type Severity Reaction Status Date / Time No Known Allergies Allergy Verified 11/18/25 21:13 Review of Systems Review of Systems Systems Reviewed: All systems reviewed, normal except as documented Past Medical History Past Medical History NEUROLOGIC: Negative Neurological Disorders or Seizures CARDIAC: Negative Cardiac Disorders or Congestive Heart Failure RESPIRATORY: Negative Chronic Obstructive Pulmonary Disease (COPD) GASTROINTESTINAL: Positive Gastrointestinal Disorders and Obesity GENITOURINARY: Negative Genitourinary Disorders or Renal Disease MUSCULOSKELETAL: Negative Musculoskeletal Disorders ENDOCRINE: Negative Endocrine Disorders, Diabetes Mellitus Type 1 or Diabetes Mellitus Type 2 HEMATOLOGIC: Negative Blood Disorders OTHER HISTORY: Negative Autoimmune Disease, Blood Transfusions, Blood Transfusion Reaction, Anesthesia Reactions, MRSA, Clostridium Difficile or Cancer Family History FAMILY HISTORY: Negative Family Psychiatric Problems, Family Respiratory Disorders, Family Cardiac Disorders, Family Gastrointestinal Problems, Family Cancer, Family Surgery or Family Anesthesia Reaction Social History SMOKING STATUS: Never smoker ED Exam General Limitations: Present no limitations General appearance: Present alert, in no apparent distress and other (Patient is awake alert oriented not in distress nontoxic looking well-hydrated well-nourished) Head Head exam: Present atraumatic, normocephalic and normal inspection Eye Eye exam: Present normal appearance, PERRL and EOMI ENT ENT exam: Present normal exam, normal oropharynx and mucous membranes moist Neck Neck exam: Present normal inspection, full ROM and trachea midline; Absent tenderness, meningismus, lymphadenopathy or thyromegaly Chest Chest inspection: Present normal inspection and symmetric chest wall rise Respiratory Respiratory exam: Present normal lung sounds bilaterally; Absent respiratory distress, wheezes, stridor, accessory muscle use or prolonged expiratory phase Cardiovascular Cardiovascular exam: Present regular rate, normal rhythm and normal heart sounds; Absent bradycardia, tachycardia, irregular rhythm or diastolic murmur Abdominal Exam Abdominal exam: Present soft and normal bowel sounds; Absent distention, tenderness, guarding, rebound, rigidity, diminished bowel sounds, hyperactive bowel sounds, hypoactive bowel sounds or organomegaly Extremities Exam Extremities exam: Present normal inspection and full ROM Back Exam Back exam: Present normal inspection and full ROM Neurological Exam Neurological exam: Present alert, oriented X3, CN II-XII intact, normal gait and reflexes normal; Absent motor sensory deficit Psychiatric Psychiatric exam: Present normal affect and normal mood Skin Skin exam: Present warm, dry, intact, normal color and other (Noted moderate tenderness and redness on the left plantar area suggestive of cellulitis no abscess no fluctuance not indurated no ulcer ROM intact neurovascular and) Course Quality Measures none Orders Category Date Time Status XR foot comp LT min 3V Stat Exams 11/18/25 21:30 Completed CBC Stat Lab 11/18/25 22:08 Completed CMP [Comprehensive Metabolic Panel] Stat Lab 11/18/25 22:08 Completed Clindamycin Vial [Cleocin vial] Med 11/18/25 22:54 Discontinued 600 mg IM X1 ONE Vital Signs Vital signs: Vital Signs Temperature 98 F 11/18/25 21:32 Pulse Rate 96 11/18/25 21:32 Respiratory Rate 18 11/18/25 21:32 Blood Pressure 147/86 H 11/18/25 21:32 Pulse Oximetry (%) 98 11/18/25 21:32 Oxygen Delivery Method Room Air 11/18/25 21:32 Oxygen saturation is 98% in room air Skin / Abscess / Foreign Body MDM Narrative MDM Narrative:: This is a case of 30-year-old male with no medical history came into the emergency room due to left foot pain with redness on the plantar aspect of the left foot patient stated that last July 2025 he had a surgery on his left foot due to a cyst since then he has on and off pain and redness to the left foot and treated with infection patient started to have left foot pain 2 days prior to arrival in the emergency room with redness on the plantar aspect of the left foot no other symptoms noted no fever no chills physical examination patient is awake alert oriented not in distress nontoxic looking well-hydrated well-nourished patient noted to have moderate tenderness on palpation on the left plantar aspect but no discharge no discoloration but with cellulitis on the left plantar area no fluctuance nonindurated no abscess blood test showed no leukocytosis no anemia kidney liver function is normal no electrolyte imbalance x-ray showed no osteomyelitis no fracture is on the physical examination patient was treated as cellulitis patient was given clindamycin IM here and was prescribed clindamycin. Patient will follow-up with PCP in 2 days for evaluation return in the emergency room in 2 days for reevaluation of the cellulitis patient agreed with the treatment plan and discharge Patient data External records reviewed:: [facility] previous records Clinical information provided by:: patient Social determinants that could affect healthcare access:: none Patient has the following chronic illnesses:: None How is presenting disease/condition affected by chronic disease/condition?: no chronic disease Evaluation data The following diagnostics were reviewed and interpreted by me:: lab results and radiology exam(s) Lab and/or radiology exams considered but not ordered:: Reviewed Interpretation Summary: Reviewed Medications / Prescriptions Medications or Prescriptions considered but not ordered:: Given Medication administrations:: Medication Administration History Discontinued Medications Clindamycin Phosphate (Clindamycin Phos Inj 150 Mg/Ml Vial 6 Ml) 600 mg IM X1 ONE Stop: 11/18/25 22:55 Last Admin: 11/18/25 23:23 Dose: 600 mg Documented By: BREE Given Consultations Consultation(s) initiated? (list below): No Diagnosis Skin/Abscess Differential Diagnosis: abscess of skin or subcutaneous tissue and cellulitis Most likely diagnosis given after review of the tests above:: Cellulitis left foot Admission Indicated Admission indicated?: not indicated Explain why admission is indicated or not indicated:: Not indicated Admission Request Was there a request for admission?: No Admission Attestation Admission request attestation: Not indicated Disposition Plan Disposition Plan: Discharge Discharge Attestation Discharge Attestation: The patient and all family members were given an opportunity to ask questions and understood the discharge instructions. Discharge instructions specifically effects, indications for sooner follow up or return to the emergency department, and the expected course of current diagnosis. Patient condition: Stable Discharge Plan Plan Patient Disposition: HOME (Self Care) Patient condition on transfer: Stable Prescriptions/Referrals Prescriptions/Med Rec: New clindamycin HCl [Cleocin HCl] 300 mg capsule 300 mg PO Q6H 10 Days Qty: 40 0RF No Action omeprazole 40 mg capsule,delayed release(DR/EC) 40 mg PO QDAY Qty: 30 0RF amoxicillin-pot clavulanate 875-125 mg tablet 1 tab PO BID Qty: 20 0RF naproxen 500 mg tablet 500 mg PO BID PRN (Reason: pain) Qty: 14 0RF Rx Instructions: take wtih food and 8 oz of water chlorhexidine gluconate 0.12 % mouthwash 15 ml buccal QDAY Qty: 118 0RF Referrals: Homar Kay MD [Primary Care Provider, Family Practice] - In 1 week Problem List Clinical Impression: Cellulitis of foot Patient/Caregiver Discharge Instructions Education Materials: Discharge Instructions for Cellulitis, ED Cellulitis Additional Instructions: Follow-up with your primary care physician in 2 days for reevaluation and to be referred to podiatry for further evaluation and treatment of cellulitis foot recurrence persistent worsening symptoms or any emergent concern call 911 or go to the nearest emergency room take your medication as directed finish the course of antibiotic keep the area clean and dry it is very important to return in the ER in 2 days for evaluation of the cellulitis Print Language: Faroese Stand Alone Forms: Kathi Award Info., Work/School Release, Patient Portal Info Letter PA/ADELITA Supervising Physician BYRON/ADELITA Supervising Physician: Dr. Phillips
== END 2025-11-18 23:46 | disposition home or self-care (01) ==
PROVIDERS: Nurse Practitioner Family; Emergency Provider Emergency Medicine; PCP Family Medicine
DX: L03.116 Cellulitis of left lower limb (principal)
CPT/HCPCS: 36415; 73630; 80053; 85025; 96372; 99283; J0736

== ENCOUNTER 2025-11-23 04:03 | Emergency (ER) | payer MEDICAID, SELFPAY ==
[2025-11-23 04:03] VITALS: BMI 39.5
[2025-11-23 04:14] VITALS: BP 122/85; PULSE 96; RESP 18; TEMP 36.5; O2SAT 97
--- NOTE | 2025-11-23 04:26 | PD.EDANKLE ---
Lower Extremity Injury RME/HPI General Chief Complaint: Wound Recheck / Suture Removal Stated Complaint: WOUND RECHECK Time Seen by Provider: 11/23/25 04:22 Arrival date/time: 11/23/25 04:03 30M with history of L foot plantar surgery 3 months ago presents to ED with wound check for several days of L foot pain. Patient was here 2 days ago and was diagnosed with cellulitis and put on clindamycin without relief. Patient was also recently here for dental pain and given Augmentin. Patient states he's been walking more and hasn't been taking pain meds. Review of pathology report from surgery reveals non-cancerous growth in foot. Limitations: no limitations Related Data Previous Rx's ?Medication ?Instructions ?Recorded omeprazole 40 mg capsule,delayed 40 mg PO QDAY #30 caps 10/28/25 release amoxicillin 875 mg-potassium 1 tab PO BID #20 tabs 11/10/25 clavulanate 125 mg tablet chlorhexidine gluconate 0.12 % 15 ml buccal QDAY #118 mL 11/10/25 mouthwash naproxen 500 mg tablet 500 mg PO BID PRN pain #14 tabs 11/10/25 clindamycin HCl 300 mg capsule 300 mg PO Q6H 10 days #40 caps 11/18/25 (Cleocin HCl) Allergies Allergy/AdvReac Type Severity Reaction Status Date / Time No Known Allergies Allergy Verified 11/18/25 21:13 Review of Systems Review of Systems Systems Reviewed: All systems reviewed, normal except as documented Musculoskeletal Musculoskeletal: Reports as per HPI and Reports arthralgias Past Medical History Past Medical History NEUROLOGIC: Negative Neurological Disorders or Seizures CARDIAC: Negative Cardiac Disorders or Congestive Heart Failure RESPIRATORY: Negative Chronic Obstructive Pulmonary Disease (COPD) GASTROINTESTINAL: Positive Gastrointestinal Disorders and Obesity GENITOURINARY: Negative Genitourinary Disorders or Renal Disease MUSCULOSKELETAL: Negative Musculoskeletal Disorders ENDOCRINE: Negative Endocrine Disorders, Diabetes Mellitus Type 1 or Diabetes Mellitus Type 2 HEMATOLOGIC: Negative Blood Disorders OTHER HISTORY: Negative Autoimmune Disease, Blood Transfusions, Blood Transfusion Reaction, Anesthesia Reactions, MRSA, Clostridium Difficile or Cancer Family History FAMILY HISTORY: Negative Family Psychiatric Problems, Family Respiratory Disorders, Family Cardiac Disorders, Family Gastrointestinal Problems, Family Cancer, Family Surgery or Family Anesthesia Reaction Social History SMOKING STATUS: Never smoker ED Exam General Limitations: Present no limitations General appearance: Present alert and in no apparent distress Head Head exam: Present atraumatic Neck Neck exam: Present normal inspection, full ROM and trachea midline Chest Chest inspection: Present normal inspection and symmetric chest wall rise Extremities Exam Extremities exam: Present full ROM Expanded Lower Extremity Exam Foot/toe exam: Present full ROM, swelling and erythema (L blanching); Absent tenderness Neurological Exam Neurological exam: Present alert and oriented X3 Psychiatric Psychiatric exam: Present normal affect and normal mood Skin Skin exam: Present warm, dry, intact and normal color Course Quality Measures none Orders Category Date Time Status Naproxen [Naprosyn] Med 11/23/25 04:23 Once 500 mg PO X1 ONE Vital Signs Vital signs: Vital Signs Temperature 97.7 F 11/23/25 04:14 Pulse Rate 96 11/23/25 04:14 Respiratory Rate 18 11/23/25 04:14 Blood Pressure 122/85 H 11/23/25 04:14 Pulse Oximetry (%) 97 11/23/25 04:14 Oxygen Delivery Method Room Air 11/23/25 04:14 O2 at 97% on RA and WNLs Extremity Injury, Lower MDM Narrative MDM Narrative:: 30M with history of L foot plantar surgery 3 months ago presents to ED with wound check for several days of L foot pain. Patient was here 2 days ago and was diagnosed with cellulitis and put on clindamycin without relief. Patient was also recently here for dental pain and given Augmentin. Patient states he's been walking more and hasn't been taking pain meds. Review of pathology report from surgery reveals non-cancerous growth in foot. Physical exam reveals some L foot swelling and blanching redness around L foot healed wound. No redness of skin and no tenderness. Patient is afebrile, calm, and alert. Pain likely from residual post-op pain, walking a lot, and then not taking pain meds. Unlikely to be infectious in nature. Patient data External records reviewed:: [facility] previous records Clinical information provided by:: patient Social determinants that could affect healthcare access:: none Patient has the following chronic illnesses:: none How is presenting disease/condition affected by chronic disease/condition?: no chronic disease Evaluation data The following diagnostics were reviewed and interpreted by me:: other (specify) (none) Lab and/or radiology exams considered but not ordered:: not ordered Interpretation Summary: n/a Medications / Prescriptions Medications or Prescriptions considered but not ordered:: ordered Medication administrations:: Medication Administration History Naproxen (Naproxen 250 Mg Tablet) 500 mg PO X1 ONE Stop: 11/23/25 04:24 above Consultations Consultation(s) initiated? (list below): No Diagnosis Extremity Injury, Lower Differential Diagnosis: ankle sprain and strain, acute internal derangement of knee, fracture of femur, fracture of hip, puncture wound of foot, fracture of toe, ankle fracture and other (postop pain, cellulitis) Most likely diagnosis given after review of the tests above:: postop pain Admission Indicated Admission indicated?: not indicated Admission Request Was there a request for admission?: No Disposition Plan Disposition Plan: Discharge Discharge Attestation Discharge Attestation: The patient and all family members were given an opportunity to ask questions and understood the discharge instructions. Discharge instructions specifically effects, indications for sooner follow up or return to the emergency department, and the expected course of current diagnosis. Patient condition: Stable Discharge Plan Plan Patient Disposition: HOME (Self Care) Discharge Disposition comment: Stable Prescriptions/Referrals Prescriptions/Med Rec: No Action omeprazole 40 mg capsule,delayed release(DR/EC) 40 mg PO QDAY Qty: 30 0RF clindamycin HCl [Cleocin HCl] 300 mg capsule 300 mg PO Q6H 10 Days Qty: 40 0RF amoxicillin-pot clavulanate 875-125 mg tablet 1 tab PO BID Qty: 20 0RF naproxen 500 mg tablet 500 mg PO BID PRN (Reason: pain) Qty: 14 0RF Rx Instructions: take wtih food and 8 oz of water chlorhexidine gluconate 0.12 % mouthwash 15 ml buccal QDAY Qty: 118 0RF Problem List Clinical Impression: Post-op pain Patient/Caregiver Discharge Instructions Education Materials: Managing Post-Op Pain at Home Additional Instructions: Please follow-up with PCP within 24-48 hours and return immediately if symptoms worsen. NSAIDs like ibuprofen tend to work better for this type of pain. Follow-up with Dr. Mcadams. Can finish ABX, but unlikely to be infection. Print Language: German Stand Alone Forms: Patient Portal Info Letter PA/EXECUTIVE STEWARD Supervising Physician PA/EXECUTIVE STEWARD Supervising Physician: Dr. Barrios
[2025-11-23] MEDS: NAPROXEN 250 MG TABLET 500 MG PO (04:31)
== END 2025-11-23 04:35 | disposition home or self-care (01) ==
LOC: SERX 06:32
PROVIDERS: Emergency Provider Emergency Medicine
DX: G89.18 Other acute postprocedural pain (principal)
CPT/HCPCS: 99281; A9270